=== PATIENT | male | born 1995 | race American Indian/Alaskan Native ===

== ENCOUNTER 2018-06-02 10:52 | Emergency (ER) | payer OTHER ==
[2018-06-02] MEDS: IBUPROFEN 800 MG TAB PO (12:27)
== END 2018-06-02 12:33 | disposition home or self-care (01) ==
LOC: FTE 10:52
DX: S69.92XA Unspecified injury of left wrist, hand and finger(s), initial encounter (principal); W18.39XA Other fall on same level, initial encounter; Y92.9 Unspecified place or not applicable
CPT/HCPCS: 29125; 73080-LT; 73110-LT; 73130-LT; 99283-25